=== PATIENT | male | born 1990 | race Caucasian/White ===

== ENCOUNTER 2019-10-12 19:07 | Emergency (ER) | payer OTHER, SELFPAY ==
[2019-10-12] VITALS (18 sets, daily range): BP systolic 139–170; BP diastolic 86–105; PULSE 65–85; RESP 15–30; TEMP 36.6; O2SAT 96–100; BMI 22.3
--- NOTE | 2019-10-12 19:09 | ED.UPPEXIN ---
HPI - Extremity Injury (Upper) General Chief Complaint: Extremity Injury, Upper Stated Complaint: right shoulder injured, thinks dislocated Time Seen by Provider: 10/12/19 19:09 Source: patient Mode of arrival: Ambulatory Limitations: no limitations History of Present Illness HPI narrative: 28-year-old male nonsmoker, without contributing medical history presents with the chief complaint of severe right shoulder pain since a ground level fall just prior to his arrival. He was playing golf [place] local [place] and stumbled over a curb and landed directly on his right shoulder. He now has significant pain, decreased range of motion, and obvious deformity. He denies any head, neck, or back pain. He denies other injury or history of prior shoulder injury. MD complaint: injury to: right Onset (ago): minute(s) Other Extremity Injury: Right: shoulder Other injuries: none Handedness: right Place: outdoors Severity: moderate Relieving factors: immobilization Exacerbating factors: movement of extremity Context: fall and direct blow Associated symptoms: denies other symptoms Related Data Home Medications Medication Instructions Recorded Confirmed ibuprofen 200 mg tablet 200 mg PO QID PRN 07/15/17 07/15/17 Previous Rx's Medication Instructions Recorded hydrocodone-acetaminophen 1 tab PO Q4-6H PRN #10 tab 10/12/19 Allergies Allergy/AdvReac Type Severity Reaction Status Date / Time No Known Drug Allergies Allergy Verified 10/12/19 19:26 Review of Systems Constitutional Constitutional: Denies chills, Denies fatigue, Denies fever(s), Denies frequent falls, Denies lethargy and Denies weakness Eyes Eyes: Denies change in vision, Denies eye discharge, Denies irritation and Denies loss of vision ENT Ears, Nose, Mouth, and Throat: Denies change in voice, Denies dizziness, Denies neck pain, Denies sore throat and Denies throat swelling Cardiovascular Cardiovascular: Denies chest pain, Denies irregular heart rhythm, Denies lightheadedness, Denies palpitations, Denies dyspnea, Denies dyspnea on exertion and Denies orthopnea Respiratory Respiratory: Denies cough, Denies dyspnea, Denies dyspnea on exertion and Denies wheezing Gastrointestinal Gastrointestinal: Denies abdominal pain, Denies change in bowel habits, Denies diarrhea, Denies nausea and Denies vomiting Musculoskeletal Musculoskeletal: Reports deformity, Reports arthralgias, Reports limited range of motion, Denies neck pain and Denies numbness Integumentary/Breasts Skin/Breast: Denies pruritus, Denies erythema, Denies rash and Denies wounds Neurologic Neurologic: Denies behavioral changes, Denies confusion, Denies dizziness, Denies frequent falls, Denies loss of vision, Denies numbness and Denies weakness Psychiatric Psychiatric: Denies anxiety, Denies behavioral changes, Denies confusion, Denies depression, Denies homicidal ideation and Denies suicidal ideation Endocrine Endocrine: Denies fatigue, Denies flushing and Denies palpitations Hematologic/Lymphatic Hematologic/Lymphatic: Denies easy bruising Allergic/Immunologic Allergic/Immunologic: Denies urticaria, Denies throat swelling and Denies wheezing Patient History Social History Smoking Status: Never smoker Smoking Status: Never smoker Exam Narrative Exam Narrative: GENERAL: [28] year old patient appears stated age. Well-nourished, well-developed patient, in obvious distress. GCS 15 HEAD: Atraumatic. Normocephalic. EYES: Pupils equal round and reactive. Extraocular motions intact. No scleral icterus. No injection or drainage. ENT: Nose without bleeding, purulent drainage. Throat without erythema, tonsillar hypertrophy or exudate. Airway patent. NECK: Trachea midline. Non tender CARDIOVASCULAR: Regular rate and rhythm without murmurs, gallops, or rubs. RESPIRATORY: Clear to auscultation. Breath sounds equal bilaterally. No wheezes, rales, or rhonchi. GASTROINTESTINAL: Abdomen soft, non-tender, nondistended. EXTREMITIES: Obvious deformity to right shoulder. Decreased ROM secondary to pain and mechanical obstruction. Closed, isolated, NV intact. Squared off presentation with palpable depression inferior to acromion, consistent with dislocation. BACK: Nontender without deformity or crepitance. No flank tenderness. NEURO: AOx3. SKIN: No rash or erythema of visible areas Initial Vital Signs Initial Vital Signs: Vital Signs Temperature 97.8 F 10/12/19 19:27 Pulse Rate 76 10/12/19 19:27 Respiratory Rate 16 10/12/19 19:27 Blood Pressure 149/100 H 10/12/19 19:27 Pulse Oximetry 99 10/12/19 19:27 Procedures Orthopedic Joint Reduction Joint #1: Time Out Performed: Yes Side: right Joint Reduction Location: shoulder Analgesia: procedural sedation Shoulder Technique Used (if applicable): traction/counter-traction and external rotation Post-reduction vascular: intact Post Reduction X-Ray Obtained: Yes Post Reduction X-Ray Results: reduced Splint Applied: Yes Patient Tolerated Procedure: Well Orthopedic Splinting/Casting Injury #1: Side: right Upper Extremity Injury Location: shoulder Upper Extremity Immobilizer: sling/shoulder immobilizer Post splinting neuro exam: intact Post splinting vascular exam: intact Placed by: Nursing Procedural Sedation Consent signed: Yes Time out performed: Yes Indication: fracture/dislocation reduction ASA Class: I Mallampati Airway Classification: Class I Time of Last PO Intake: 18:00 Preparation: cardiac nurse practitioner applied, pulse oximeter, capnometry used, supplemental O2 applied, suction/airway equipment at bedside and IV secured IV Propofol dose (mg): 100 Intraservice time/total sedation time (min): 10 ED Sedation Level: Moderate (Concious) Patient Tolerated Procedure: Well Complications: none Course Course Course Narrative: some attempt initially with deltoid massage, scapular manipulation, but unsuccessful. Patient given versed intranasal and though he felt more relaxed we remained unable to reduce. Orders Ordered: ED Orders 10/12/19 19:50 XR shoulder RT 1V Stat 10/12/19 20:15 XR shoulder RT 1V Stat Discontinued Medications Hydrocodone Bitart/Acetaminophen (Vicodin 5/325 Prepack) 1 bottle MISC SEEINSTR ONE Stop: 10/12/19 20:16 Last Admin: 10/12/19 20:48 Dose: 1 bottle Documented by: NORA Midazolam HCl (Versed) 10 mg NASAL NOW ONE Stop: 10/12/19 19:36 Last Admin: 10/12/19 19:40 Dose: 10 mg Documented by: MARCIAL Ondansetron HCl (Zofran Odt Prepack) 1 bottle MISC SEEINSTR ONE Stop: 10/12/19 20:16 Last Admin: 10/12/19 20:48 Dose: 1 bottle Documented by: NORA Propofol (Diprivan) 75 mg 1 mg/kg (75 mg) IV NOW ONE Stop: 10/12/19 19:58 Last Admin: 10/12/19 20:13 Dose: 75 mg Documented by: MARCIAL Consultations Consultation #1: discussion with assistant front office manager orthopedics, Dr. Hogan, who is happy to see in outpatient setting. Agrees with plan to keep in sling, treat pain, and follow up. Patient may need surgical intervention. Vital Signs Vital signs: Vital Signs - 8 hr 10/12/19 19:27 10/12/19 20:05 10/12/19 20:06 Temperature 97.8 F Pulse Rate 76 75 80 Respiratory Rate 16 22 21 Blood Pressure 149/100 H 170/101 H Pulse Oximetry 99 96 98 10/12/19 20:10 10/12/19 20:15 10/12/19 20:16 Temperature Pulse Rate 76 72 75 Respiratory Rate 22 25 H 16 Blood Pressure 150/92 H 144/93 H Pulse Oximetry 100 100 10/12/19 20:20 10/12/19 20:25 10/12/19 20:30 Temperature Pulse Rate 68 66 66 Respiratory Rate 18 16 16 Blood Pressure 148/96 H 149/99 H 149/103 H Pulse Oximetry 100 100 100 10/12/19 20:35 10/12/19 20:40 10/12/19 20:45 Temperature Pulse Rate 74 85 66 Respiratory Rate 17 30 H 15 Blood Pressure 144/98 H 143/105 H 146/96 H Pulse Oximetry 100 100 100 10/12/19 20:50 10/12/19 20:55 10/12/19 21:00 Temperature Pulse Rate 65 70 71 Respiratory Rate 16 17 16 Blood Pressure 151/98 H 146/95 H 142/86 H Pulse Oximetry 100 100 10/12/19 21:05 10/12/19 21:10 10/12/19 21:15 Temperature Pulse Rate 71 76 74 Respiratory Rate 16 16 16 Blood Pressure 143/92 H 139/86 143/90 H Pulse Oximetry 99 99 99 MDM - Extremity Injury (Upper) Imaging Data Extremity x-ray #1: Attestation: I personally reviewed and interpreted this imaging study as follows: My Impression: R shoulder dislocation, tuberosity fx Radiologist's Impression: [address] [address] XRay Report Signed Patient: Issac Ernst CMR#: [id number] : 1990Acct:[id number] Age/Sex: 28 / MDate of Service: 10/12/19 Loc: ED Accession Number: [id number] Procedure: XR shoulder RT 1V Ordering Provider: Matthew Guthrie D.O. PROCEDURE: XR SHOULDER RT 1V INDICATIONS: dislocation TECHNIQUE: 1 view of the shoulder were acquired. COMPARISON: None. FINDINGS: Bones: Hill-Sachs fracture of the humerus. The inferior glenoid is not well evaluated on this single projection. Anterior dislocation of the humerus in relation to the glenoid. No suspicious bony lesions. Visualized ribs appear intact. Soft tissues: No suspicious soft tissue calcifications. IMPRESSION: Hill-Sachs fracture of the humerus and anterior dislocation. Dictated by: Macho Oglesby M.D. on 10/12/2019 at 20:16 Approved by: Macho Oglesby M.D. on 10/12/2019 at 20:22 Discharge Plan Departure Patient Disposition: Home Clinical Impression: Hill Sachs deformity, right Anterior shoulder dislocation Qualifiers: Encounter type: initial encounter Laterality: right Qualified Code(s): S43.014A - Anterior dislocation of right humerus, initial encounter Discharge Date/Time: 10/12/19 21:27 Activity Restrictions/Additional Instructions: *You have been diagnosed with [right shoulder dislocation with small fracture component] *What to do: *Take medications as directed: Pain meds sent to [facility] at your request *Follow up with your primary care provider in 2-3 days, call for an appointment. Let them know you were seen in the Emergency Department and that we ask that you be seen in follow up *Return to ER if you should have any new, worsening or concerning symptoms Prescriptions: New hydrocodone-acetaminophen 5-325 mg tablet 1 tab PO Q4-6H PRN (Reason: pain) Qty: 10 RF: 0 No Action ibuprofen [Advil] 200 mg tablet 200 mg PO QID PRNRF: 0 Referrals: Praful Hogan MD [Physician] -
--- NOTE | 2019-10-12 19:37 | PC.NURSE ---
slipped and fell while golfing. right shoulder deformity and unable to move arm to full range of motion. CMS distal in tact.
[2019-10-12] MEDS: MIDAZOLAM 5 MG/ML VIAL 10 MG NASAL (19:40)
--- NOTE | 2019-10-12 19:50 | DI.RAD.S_ITS ---
PROCEDURE: XR SHOULDER RT 1V INDICATIONS: dislocation TECHNIQUE: 1 view of the shoulder were acquired. COMPARISON: None. FINDINGS: Bones: Hill-Sachs fracture of the humerus. The inferior glenoid is not well evaluated on this single projection. Anterior dislocation of the humerus in relation to the glenoid. No suspicious bony lesions. Visualized ribs appear intact. Soft tissues: No suspicious soft tissue calcifications. IMPRESSION: Hill-Sachs fracture of the humerus and anterior dislocation. Dictated by: Macho Oglesby M.D. on 10/12/2019 at 20:16 Approved by: Macho Oglesby M.D. on 10/12/2019 at 20:22
--- NOTE | 2019-10-12 20:15 | DI.RAD.S_ITS ---
PROCEDURE: XR SHOULDER RT 1V INDICATIONS: post reduction TECHNIQUE: 1 views of the shoulder were acquired. COMPARISON: [facility], CR, XR SHOULDER RT 1V, 10/12/2019, 19:58. FINDINGS: Bones: Hill-Sachs fracture. No bony Bankart fracture seen. Relocation of the humerus. No suspicious bony lesions. Visualized ribs appear intact. Soft tissues: No suspicious soft tissue calcifications. IMPRESSION: Successful relocation of the humerus. Hill-Sachs fracture. No bony Bankart fractures seen. Consider follow-up MRI of the right shoulder to evaluate the inferior glenoid. Dictated by: Macho Oglesby M.D. on 10/12/2019 at 20:24 Approved by: Macho Oglesby M.D. on 10/12/2019 at 20:26
[2019-10-12] MEDS: HYDROCODONE/ACET 5/325 PREPACK 1 BOTTLE MISC (20:48)
[2019-10-12] MEDS: ONDANSETRON 4 MG ODT PREPACK 1 BOTTLE MISC (20:48)
--- NOTE | 2019-10-12 20:51 | PC.NURSE ---
10 mg midazolam administered IN with no effect in relocating shoulder using position and a weight attached to his had to reduce. procedural sedation effective in reduction of dislocation. Provider pushed 80mg propofol. Pt tolerated procedural well. maintained sats at 100% on 4L nc provided by RT. Pateint awake and remembers events leading up to sedation. The effects of midazolam causing patinet to remain sleepy however he is talking to his friend at bedside.
[2019-10-12] MEDS: propofoL 200 MG/20 ML VIAL 75 MG IV (20:56)
== END 2019-10-12 21:27 | disposition home or self-care (01) ==
PROVIDERS: Emergency Provider Emergency Medicine
DX: S43.014A Anterior dislocation of right humerus, initial encounter (principal); M21.821 Other specified acquired deformities of right upper arm; Y93.53 Activity, golf
CPT/HCPCS: 23605; 73020; 94770; 99152; 99285; 99291; J2250; J2704